=== PATIENT | female | born 1980 | race Caucasian/White ===

== ENCOUNTER → 2016-10-16 | Outpatient (CLI) | payer MEDICAID, OTHER ==
[~2016-10-16] MED LIST: BUTA1CAP PO; EXCETAB2 PO; IOHEXOL 350 MG/ML 10 ML VIAL (for RAD DIAG) IV ONE; OXYC1TAB63 PO; PRED5TAB PO
--- NOTE | 2016-10-16 15:27 | RADRPT ---
EXAM DATE/TIME: 10/16/2016 14:11 [facility] COMPARISON: No previous studies available for comparison. INDICATIONS : New diagnosis of cervical cancer. IV CONTRAST: 85 cc Omnipaque 350 (iohexol) IV ; Cumulative dose for multiple exams. ORAL CONTRAST: Prescribed oral contrast ingested. RADIATION DOSE: 16.63 CTDIvol (mGy) ; Combined studies - Thorax/Abdomen/Pelvis MEDICAL HISTORY : Cervical cancer. SURGICAL HISTORY : Tubal ligation. ENCOUNTER: Initial ACUITY: 1 month PAIN SCALE: 0/10 LOCATION: abdomen TECHNIQUE: Volumetric scanning of the abdomen and pelvis was performed. Using automated exposure control and ad justment of the mA and/or kV according to patient size, radiation dose was kept as low as reasonably achievable to obtain optimal diagnostic quality images. FINDINGS: Lung bases are clear. No focal abnormality in the liver, spleen, adrenals, kidneys or pancreas. Mild fatty liver. No calcified gallstones or biliary ductal dilatation. There is no retroperitoneal adenopathy. Direct examination of the pelvis reveal some soft tissue prom inence in the cervical region. There is reportedly a history of cervical cancer. Borderline-enlarged paracervical lymph nodes are noted. No adnexal mass identified. CONCLUSION: 1. Soft tissue prominence in the cervical region with borderline enlarged paracervical lymph nodes in patient with reported history of cervical cancer. No acute findings within the abdomen. Rudi Clark MD on October 16, 2016 at 15:21 Board Certified Radiologist. This report was verified electronically.
--- NOTE | 2016-10-16 15:31 | RADRPT ---
EXAM DATE/TIME: 10/16/2016 14:11 [facility] COMPARISON: No previous studies available for comparison. INDICATIONS : Cervical cancer. Evaluate for metastatic disease. IV CONTRAST: 85 cc Omnipaque 350 (iohexol) IV ; Cumulative dose for multiple exams. RADIATION DOSE: 16.63 CTDIvol (mGy) ; Combined studies - Thorax/Abdomen/Pelvis MEDICAL HISTORY : Cervical cancer SURGICAL HISTORY : Tubal ligation. ENCOUNTER: Initial ACUITY: 1 month PAIN SCALE: 0/10 LOCATION: chest TECHNIQUE: Volumetric scanning of the chest was performed. Using automated exposure control and adjustment of t he mA and/or kV according to patient size, radiation dose was kept as low as reasonably achievable to obtain optimal diagnostic quality images. FINDINGS: There is an approximately 4 mm nodule right middle lobe. This is likely benign given the fact that no other lung nodules are seen. There is a reported history of cervical cancer. No pleural pericardial effusion. No hilar, mediastinal or axillary adenopathy. No acute bony abnormal ities. CONCLUSION: 1. 4 mm nodule right middle lobe, indeterminate but likely benign. As a conservative measure followup noncontrast chest CT recommended in 6 months. Rudi Clark MD on October 16, 2016 at 15:26 Board Certified Radiologist. This report was verified electronically.
== END ==
LOC: HRAD 12:35
PROVIDERS: ATTEND Obstetrics & Gynecology
DX: C53.9 Malignant neoplasm of cervix uteri, unspecified (principal)
CPT/HCPCS: 71260; 74177; Q9967

== ENCOUNTER → 2016-10-24 | Outpatient (CLI) | payer MEDICAID, OTHER ==
[~2016-10-24] MED LIST changes: -IOHEXOL 350 MG/ML 10 ML VIAL (for RAD DIAG) IV ONE
[2016-10-24 12:13] LABS: AUTOMATED NEUTROPHIL # 4.6 TH/MM3 (1.8-7.7); BASOPHIL % 0.6 % (0.0-2.0); EOSINOPHIL # 0.1 TH/MM3 (0-0.4); EOSINOPHIL % 1.2 % (0.0-4.0); HEMATOCRIT 34.9 % (35.0-46.0); HEMO FLAGS DIFF FINAL; LYMPH % 33.8 % (9.0-44.0); LYMPHOCYTE # 2.7 TH/MM3 (1.0-4.8); MEAN CELL VOLUME 77.8 FL (80.0-100.0); MEAN CORPUSCULAR HEMOGLOBIN 25.3 PG (27.0-34.0); MEAN CORPUSCULAR HGB CONC 32.5 % (32.0-36.0); MONO % 6.9 % (0.0-8.0); NEUT % 57.5 % (16.0-70.0); PLATELET COUNT 271 TH/MM3 (150-450); RED BLOOD COUNT 4.49 MIL/MM3 (4.00-5.30); RED CELL DISTRIBUTION WIDTH 15.9 % (11.6-17.2); WHITE BLOOD COUNT 7.9 TH/MM3 (4.0-11.0)
[2016-10-24 12:27] LABS: APTT (PATIENT) 28.2 SEC (24.3-30.1); PROTHROMBIN TIME - PATIENT 10.7 SEC (9.8-11.6)
[2016-10-24 12:42] LABS: ANION GAP 5 MEQ/L (5-15); AST (GOT) 13 U/L (15-37); BLOOD UREA NITROGEN 9 MG/DL (7-18); CHLORIDE 106 MEQ/L (98-107); SODIUM (NA) 139 MEQ/L (136-145)
[2016-10-24 12:50] LABS: ALKALINE PHOSPHATASE 86 U/L (45-117); ALT (GPT) 34 U/L (10-53); GLOMERULAR FILTRATION RATE 108 ML/MIN (>89); GLUCOSE,FASTING 83 MG/DL (74-99); TOTAL BILIRUBIN ADULT 0.4 MG/DL (0.2-1.0)
[2016-10-24 12:53] LABS: BHCG SCREEN QUALITATIVE LESS THAN 1 MIU/ML (0-5)
== END ==
LOC: CPRE 10:58
PROVIDERS: ATTEND Obstetrics & Gynecology Gynecologic Oncology
DX: Z01.812 Encounter for preprocedural laboratory examination (principal); C53.9 Malignant neoplasm of cervix uteri, unspecified
CPT/HCPCS: 36415; 80053; 84703; 85025; 85610; 85730

== ENCOUNTER → 2016-10-30 | Day surgery (SDC) | payer MEDICAID, OTHER ==
[~2016-10-30] VITALS: Ht 157.5 cm; Wt 81.4 kg
[~2016-10-30] MED LIST changes: +DEXAMETHASONE SOD PHOS 4 MG/ML VIAL ONE; +DO NOT ADM ANY ANTICOAGULANT DRUGS XX PRN; +FERRIC SUBSULFATE 8 ML TOP SOLN TOPICAL ONE; +INSULIN HUMAN REGULAR 1,000 UNITS/10 ML VIAL SQ PRN; +KETOROLAC TROMETHAMINE 60 MG/2 ML (IM) VIAL IM ONE; +LACTATED RINGER'S 1000 ML IV SCH; +LIDOCAINE 1%/EPINEPHrine 1:100,000 SOLN 30 ML VIAL ONE; +METOPROLOL TARTRATE 25 MG TAB PO PRN; +MIDAZOLAM HCL 2 MG/2 ML VIAL ONE; +ONDANSETRON HCL 4 MG/2 ML VIAL IV PUSH ONE; +PROPOFOL 200 MG/20 ML AMP IV ONE; +SODIUM CHLORID 0.9% 500 ML IV SCH; +VASOPRESSIN INJ 20 UNITS/ML VIAL ONE
[2016-10-30 16:50] VITALS: BP 100/54; PULSE 66; RESP 18; TEMP 97.4; O2SAT 97
--- NOTE | 2016-11-01 07:20 | MP ---
cc: NORBERT HOUSTON MD, KELLY L. MD DATE OF SURGERY 10/30/2016 PREOPERATIVE DIAGNOSIS Squamous cell carcinoma of the cervix. POSTOPERATIVE DIAGNOSIS 1. Squamous cell carcinoma of cervix. 2. Clinical stage IIB PROCEDURE PERFORMED Examination under anesthesia, cervix biopsies, cystoscopy, proctoscopy. HISTORY This is a 36-year-old female with irregular bleeding. Pap smear abnormal-appearing cervix on exam. Biopsy showed invasive squamous cell carcinoma. Imaging showed some borderline prominent lymph nodes adjacent to the cervix without any overt retroperitoneal adenopathy. She was seen and counseled regarding the need for further evaluation and presents now for that endeavor. SURGEON Aminah Silva MD INTRAOPERATIVE CONSULT Dr. Mcintyre of radiation oncology FINDINGS On exam under anesthesia, there are no appreciably enlarged inguinal lymph nodes. External genitalia without mass or lesion. The cervix is quite prominent. There is abnormal-appearing tissue that seems consistent with tumor that occupies approximately 3 cm surface area and the cervix itself is prominent to approximately between 5 and 6 cm. The circumferential perimeter of the cervix appears and is palpably normal such that there may be a burden of tumor within the endocervical component of the cervix. On bimanual and rectovaginal exam, there is some mild thickening to the right parametria, but the cervix and uterus are mobile on the right side. However, on the left side, there is retraction of the cervix up toward the upper left vagina. There is decreased mobility and there is thickening to the left parametria all suspicious for tumor invasion. There is tumor free space between the parametria and the sidewalls of the pelvis bilaterally. On cystoscopy, the bladder mucosa appears normal circumferentially. There is good reflux of urine bilaterally from the normal-appearing ureteral ostia. On rigid sigmoidoscopy to 16 cm, there is normal mucosa without obvious mass, polyps, growths or infiltration. She is not prepped and visibility above 16 cm is not possible. There is no overt extrinsic deviation to the normal anatomy of the rectosigmoid. Frozen section, the preliminary biopsy showed at least carcinoma in situ. The specimen sent could not reconfirm invasive cancer, but multiple additional biopsies were also collected and sent for permanent histopathologic analysis. Outside biopsy has shown invasive cancer. Overall, these findings are consistent with a clinical stage IIB squamous cell carcinoma of the cervix. PROCEDURE The patient taken operating room, placed in the dorsal lithotomy position after laryngeal mask anesthesia was administered. A time-out was undertaken. The patient was identified by sight recognition and hospital ID bracelet and the proposed procedure was reviewed and confirmed. She was carefully positioned in stirrups. Exam under anesthesia was performed after a laryngeal mask after laryngeal mask anesthesia was administered and findings are as described above. She was prepped and draped in a sterile fashion. Cervix biopsies were obtained. Some of the tissue sent for frozen section. Additional biopsies obtained and sent for permanent histopathologic analysis and the sites were rendered hemostatic with Monsel's solution. Cystoscopy was performed using a 70 degrees scope with findings as described above. Rigid proctosigmoidoscopy was performed with findings as described above. A change of sterile gloves was undertaken. The pelvis was inspected and cervix was hemostatic. There were no remaining foreign objects in the vagina. Preliminary final counts were correct. She was returned to dorsal supine position and was pending reversal of anesthesia when I left the operating room to precede her to the Post Anesthesia Care Unit. MD RICKY Page/MARIA A /7:41 AM /7:12 AM
== END | disposition home or self-care (01) ==
LOC: HSDC 10:59
PROVIDERS: ATTEND Obstetrics & Gynecology Gynecologic Oncology
DX: C53.9 Malignant neoplasm of cervix uteri, unspecified (principal)
CPT/HCPCS: 00940; 45300; 52000; 57520; 86850; 86900; 86901; 88305; 88331; J1100; J1885; J2250; J2405; J3010

== ENCOUNTER 2016-11-06 12:52 | Inpatient (IN) | payer MEDICAID, OTHER ==
[~2016-11-06] VITALS: Ht 157.5 cm; Wt 88.1 kg
[~2016-11-06 12:52] MED LIST changes: -DEXAMETHASONE SOD PHOS 4 MG/ML VIAL ONE; -DO NOT ADM ANY ANTICOAGULANT DRUGS XX PRN; -EXCETAB2 PO; -FERRIC SUBSULFATE 8 ML TOP SOLN TOPICAL ONE; -INSULIN HUMAN REGULAR 1,000 UNITS/10 ML VIAL SQ PRN; -KETOROLAC TROMETHAMINE 60 MG/2 ML (IM) VIAL IM ONE; -LACTATED RINGER'S 1000 ML IV SCH; -LIDOCAINE 1%/EPINEPHrine 1:100,000 SOLN 30 ML VIAL ONE; -METOPROLOL TARTRATE 25 MG TAB PO PRN; -MIDAZOLAM HCL 2 MG/2 ML VIAL ONE; -ONDANSETRON HCL 4 MG/2 ML VIAL IV PUSH ONE; -OXYC1TAB63 PO; -PRED5TAB PO; -PROPOFOL 200 MG/20 ML AMP IV ONE; -SODIUM CHLORID 0.9% 500 ML IV SCH; -VASOPRESSIN INJ 20 UNITS/ML VIAL ONE
[2016-11-11] MEDS ORDERED: LIDOCAINE 1%/EPINEPHrine 1:100,000 SOLN 30 ML VIAL ONE (06:50)
[2016-11-11 09:35] VITALS: BP 118/66; PULSE 88; RESP 16; TEMP 98.8; O2SAT 99
[2016-11-11] MEDS ORDERED: EXCETAB2 PO (10:19)
[2016-11-11] MEDS ORDERED: LACTATED RINGER'S 1000 ML IV SCH (10:30)
[2016-11-11] MEDS ORDERED: SODIUM CHLORID 0.9% 500 ML IV SCH (10:30)
[2016-11-11] MEDS ORDERED: METOPROLOL TARTRATE 25 MG TAB PO PRN (10:30)
[2016-11-11] MEDS ORDERED: INSULIN HUMAN REGULAR 1,000 UNITS/10 ML VIAL SQ PRN (10:30)
[2016-11-11] MEDS ORDERED: ceFAZolin 2 GM PREMIX 50 ML ONE (10:32)
[2016-11-11] MEDS ORDERED: HEPARIN SODIUM - SQ 10,000 UNITS/ML VIAL ONE (10:35)
[2016-11-11] MEDS ORDERED: PHENYLEPH/NS 1000 MCG/10 ML SYR IV ONE (10:52)
[2016-11-11] MEDS ORDERED: ONDANSETRON HCL 4 MG/2 ML VIAL IV PUSH ONE (10:52)
[2016-11-11] MEDS ORDERED: LACTATED RINGER'S 1000 ML INJ 2,000 ML IV ONE (10:52)
[2016-11-11] MEDS ORDERED: NEOSTIGMINE 3 MG/3 ML SYR IV ONE (10:52)
[2016-11-11] MEDS ORDERED: PROPOFOL 200 MG/20 ML AMP IV ONE (10:52)
[2016-11-11] MEDS ORDERED: ACETAMINOPHEN 1000 MG/100 ML VIAL IV ONE (11:07)
[2016-11-11] MEDS ORDERED: MIDAZOLAM HCL 2 MG/2 ML VIAL ONE (11:28)
[2016-11-11] MEDS ORDERED: FAMOTIDINE 20 MG/2 ML VIAL ONE (11:28)
[2016-11-11] MEDS ORDERED: HYDROmorphone HCL PF 1 MG/ML VIAL IVP PRN (14:30)
[2016-11-11] MEDS ORDERED: SODIUM CHLORIDE 0.9% FLUSH 5 ML FLUSH FLUSH PRN (14:30)
[2016-11-11] MEDS ORDERED: oxyCODONE/ACETAMINOPHEN 5 MG/325 MG TAB PO PRN ×2 (14:30)
[2016-11-11] MEDS ORDERED: diphenhydrAMINE HCL 25 MG CAP PO PRN (14:30)
[2016-11-11] MEDS ORDERED: ONDANSETRON HCL 4 MG/2 ML VIAL IVP PRN (14:30)
[2016-11-11] MEDS ORDERED: LORazepam 0.5 MG TAB PO PRN (14:30)
[2016-11-11] MEDS ORDERED: fentaNYL CITRATE 250 MCG/5 ML AMP ONE (14:51)
[2016-11-11] MEDS ORDERED: MORPHINE SULFATE 4 MG/ML INJ ONE (14:51)
[2016-11-11] MEDS: D5-1/2 NS + KCL 20 MEQ INJ 1,000 ML IV SCH ×2 (14:59→21:07)
[2016-11-11] MEDS ORDERED: ONDANSETRON INJ 8 MG in DEXTROSE 5% IN WATER INJ 50 ML IV PUSH PRN ×2 (15:00)
[2016-11-11] MEDS: KETOROLAC TROMETHAMINE 30 MG/ML (IVP) VIAL IVP SCH ×2 (15:00→21:06)
[2016-11-11] MEDS ORDERED: DO NOT ADM ANY ANTICOAGULANT DRUGS XX PRN (15:15)
[2016-11-11] MEDS: ACETAMIN 325 MG/BUTALBITAL 50 MG/CAFFEINE 40 MG TAB PO PRN (18:06)
[2016-11-11 20:00] VITALS: BP 114/67; PULSE 76; RESP 17; TEMP 97.2; O2SAT 95
[2016-11-11] MEDS: SODIUM CHLORIDE 0.9% FLUSH 5 ML FLUSH FLUSH SCH (21:12)
[2016-11-12] VITALS: BP 113/65; PULSE 78; RESP 17; TEMP 98.6; O2SAT 96
[2016-11-12] MEDS: ACETAMIN 325 MG/BUTALBITAL 50 MG/CAFFEINE 40 MG TAB PO PRN (00:04)
[2016-11-12] MEDS: KETOROLAC TROMETHAMINE 30 MG/ML (IVP) VIAL IVP SCH ×2 (03:10→08:10)
[2016-11-12 04:00] VITALS: BP 109/67; PULSE 65; RESP 16; TEMP 98.6; O2SAT 97
[2016-11-12] MEDS: D5-1/2 NS + KCL 20 MEQ INJ 1,000 ML IV SCH (06:26)
[2016-11-12 06:33] LABS: AUTOMATED NEUTROPHIL # 7.6 TH/MM3 (1.8-7.7); BASOPHIL % 0.2 % (0.0-2.0); HEMATOCRIT 32.3 % (35.0-46.0); HEMO FLAGS DIFF FINAL; LYMPH % 15.8 % (9.0-44.0); LYMPHOCYTE # 1.6 TH/MM3 (1.0-4.8); MEAN CELL VOLUME 76.4 FL (80.0-100.0); MEAN CORPUSCULAR HEMOGLOBIN 25.3 PG (27.0-34.0); MEAN CORPUSCULAR HGB CONC 33.1 % (32.0-36.0); MONO % 8.6 % (0.0-8.0); NEUT % 75.4 % (16.0-70.0); PLATELET COUNT 266 TH/MM3 (150-450); RED BLOOD COUNT 4.22 MIL/MM3 (4.00-5.30); WHITE BLOOD COUNT 10.1 TH/MM3 (4.0-11.0)
[2016-11-12 06:57] LABS: BICARBONATE 24.5 MEQ/L (21.0-32.0); POTASSIUM 3.9 MEQ/L (3.5-5.1)
[2016-11-12 08:00] VITALS: BP 111/66; PULSE 66; RESP 18; TEMP 98.1; O2SAT 98
[2016-11-12] MEDS ORDERED: OXYC1TAB63 PO (08:03)
[2016-11-12] MEDS: SODIUM CHLORIDE 0.9% FLUSH 5 ML FLUSH FLUSH SCH (08:10)
[2016-11-12 12:00] VITALS: BP 114/60; PULSE 88; RESP 18; TEMP 97.5; O2SAT 97
--- NOTE | 2016-11-12 12:39 | MP ---
cc: NORBERT HOUSTON MD, KELLY L. MD DATE OF SURGERY 11/11/2016 PREOPERATIVE DIAGNOSES 1. Stage II-B squamous cell carcinoma of the cervix. 2. Desires preservation of ovarian function. POSTOPERATIVE DIAGNOSES 1. Stage II-B squamous cell carcinoma of the cervix. 2. Desires preservation of ovarian function. PROCEDURE Robotic-assisted laparoscopic bilateral ovarian transposition, bilateral salpingectomy. SURGEON Aminah Silva MD VICE PRESIDENT [employer] [place] laboratory chemical assistant. ANESTHESIA General endotracheal anesthesia. ESTIMATED BLOOD LOSS 50 cc. IV FLUIDS 2000 cc. URINE OUTPUT 600 cc. HISTORY This is a 36-year-old female recently diagnosed with Stage II-B squamous cell carcinoma of the cervix. Their plan is to move forward with treating this with pelvic radiation and cisplatin chemotherapy. In an effort to avoid premature ovarian failure due to radiation of the ovaries, she has been counseled about the potential benefit of ovarian transposition. She is in favor of that surgical procedure. She also has been counseled regarding the potential cancer risk reduction of salpingectomy. She has already had tubal ligation. She understands the reproductive ramifications of this procedure and the forthcoming radiation therapy. She is seen again in the preop holding area. These findings and considerations are again discussed. Her questions were answered. She expressed good understanding and agreed to move forward with surgery. FINDINGS There was no overtly enlarged pelvic or paraaortic lymph nodes. There were no peritoneal implants. The tubes and ovaries grossly appeared normal bilaterally except for some small simple-appearing paratubal cysts. PROCEDURE The patient was taken to the operating room, placed in dorsal lithotomy position after general endotracheal anesthesia was administered. Time-out was undertaken. The patient was identified by sight recognition and hospital ID bracelet and the proposed procedure was reviewed and confirmed. She was carefully positioned in padded Pramod stirrups. Her arms were padded and secured to the sides. She was further secured to the operating table with eggcrate padding and tape in across chest over the shoulder fashion. All sites were noted be properly aligned with no malalignments or pressure points. She was prepped in sterile fashion, draped. A De La Fuente catheter had been placed in the bladder and confirmed that an orogastric airway had been placed in the stomach on suction. With manual elevation of the abdominal wall and direct laparoscopic visualization, a 5-mm cannula was placed in the left upper quadrant. An atraumatic entry was confirmed. Carbon dioxide gas was insufflated into the peritoneum. An 8-mm cannula was placed in the right upper abdomen, left lateral abdomen and a 12-mm cannula placed in midline above the umbilicus. The original 5 was exchanged for a 8-mm cannula. She is placed in steep Trendelenburg position. The small bowel folded back on its mesenteric root. Three Ray-Denzel sponges were placed around the root of the small bowel mesentery. The anatomy was surveyed with findings as described above. The robotic system was brought onto the operative field, attached in the usual fashion. Monopolar scissors, fenestrated bipolar forceps and ProGrasp manipulators were placed in arms #1, 2 and 3 respectively and I took my place at the surgeon's console. Retroperitoneal dissection was carried out lateral to the gonadal vessels, dissection taken above the level of the pelvic brim and down to the round ligament. The right ureter was identified. The intervening peritoneum was opened. The infundibulopelvic ligament was isolated and the right uteroovarian ligaments were isolated. The uteroovarian ligaments were cauterized and two surgical clips were placed on the uteroovarian ligament for radiographic Identification once the ovary was transposed and cautery and sharp dissection was used to remove the right fallopian tube. She is status post tubal ligation and a fallopian tube ring was noted in the proximal fallopian tube. The tube was placed in the cul-de-sac for later retrieval. Attention was directed toward the left side where the left retroperitoneal dissection was carried out. The left ureter was identified, left infundibulopelvic ligament was isolated. The intervening peritoneum was opened and the infundibulopelvic ligament was isolated well above the level of the pelvic brim and dissection was carried distally to isolate the left uteroovarian ligament. The uteroovarian ligament was cauterized, surgical clips were placed on the uteroovarian ligament help with radiographic location after repositioning Sharp dissection was used now to transect the uteroovarian ligaments bilaterally after the left fallopian tube was similarly removed and placed in the cul-de-sac for later retrieval. The ovaries were rotated above the pelvic brim in their ipsilateral paracolic gutters. The blood supply was arranged in an anatomical alignment in that there were no torsions or twists and the placement of the ovaries was such that there was no compromise to the blood supply. Instruments #1 and 3 were exchanged for needle drivers as 2-0 Vicryl suture was introduced. The sutures started on the left with interrupted [id number] sutures securing the ovary in place between the peritoneum and subperitoneal tissue, sutured to the residual uteroovarian ligament in interrupted fashion, tied via instrument tie. The needle was cut and removed. A new 2-0 Vicryl suture was introduced. Similarly the right ovary was secured in place, interrupted 2-0 Vicryl sutures securing the residual uteroovarian ligament to the peritoneum and subperitoneal tissue, interrupted sutures tied via instrument tie. The needle was cut and removed. The pelvis and paracolic gutters were irrigated. All sites were hemostatic. There was good viability of the ovaries, good gradual curve of the gonadal vessels with no kinking or twisting and securing of the ovaries to prevent torsion. The uterus was hemostatic. The pelvis was again thoroughly irrigated. The fallopian tubes were placed now in the right paracolic gutter for ease of retrieval laparoscopically. It was felt that all reasonable surgical objectives had been completed after the anatomy was surveyed and no intraperitoneal or retroperitoneal abnormality of significance detected. The robotic instruments were removed. The robotic system was disengaged from the operative field. I reentered bedside under sterile condition. Each of the three Ray-Denzel sponges were removed through the 12-mm cannula. They were removed individually and inspected and noted to be removed in their entirety. An EndoCatch bag was then introduced to capture the bilateral fallopian tubes which were brought out through the 12-mm cannula and sent for permanent histopathologic analysis. The 12-mm fascial defect was closed with interrupted 0 Vicryl sutures using a needle pass fascia closure apparatus. The sutures were tied securely which rendered the fascia completely airtight and hemostatic. The remaining cannulas were withdrawn. Carbon dioxide gas was removed from the peritoneal cavity. 3-0 Vicryl subcutaneous, 3-0 Vicryl subcuticular and Steri-Strips used to close these incisions. Preliminary and final counts were correct. There were no remaining foreign objects in the vagina. She was returned to dorsal supine position and was pending reversal of anesthesia when I left the operating room to precede her to the Post-Anesthesia Care Unit and speak with family members who were in the surgical waiting area. MD RICKY Page/JUNIOR /6:04 PM /12:22 PM
--- NOTE | 2016-11-17 17:15 | MD ---
cc: DAYANA LLANES MD,JOHANA HOUSTON,NORBERT Caro MD ADMISSION DATE: 11/11/2016 DISCHARGE DATE: 11/12/2016 PROCEDURE PERFORMED: 11/11/2016: robotic-assisted laparoscopic bilateral ovarian transposition and bilateral salpingectomy. DIAGNOSIS: Clinical stage IIB squamous cell carcinoma of the cervix and desire to preserve ovarian function with forthcoming chemoradiation. HOSPITAL COURSE: She did well during the early postoperative period. OBJECTIVE: Ins and outs were 5390 / 5050. LABS: Hemoglobin and hematocrit were 10.7 / 32.3. Potassium 3.9, BUN 4 and creatinine 0.65. PHYSICAL EXAMINATION: VITAL SIGNS: Afebrile, pulse 65-89, respirations 16-17, blood pressure 103-114/58-72, O2 saturations greater than or equal to 96% while awake. GENERAL: Alert and oriented x3 in no acute distress. LUNGS: Clear. CARDIOVASCULAR: Regular rate rhythm. ABDOMEN: Soft. Incisions clean and dry. EXTREMITIES: Nontender. ASSESSMENT: Postop day #1 findings reviewed activity restrictions discussed. Questions were answered. Overall she is doing well, tolerating oral intake. Her biggest complaint is that of a migraine headache which she gets for which she takes Fioricet given last night which alleviated her symptoms to some extent. She has no new complaints and is tolerating oral intake. De La Fuente catheter is removed pending voiding. PLAN: 1. Anticipate she will meet criteria for discharge to home her office number is again made available. 2. She is to call our office to set up follow up within one to two weeks. 3. Prescription is provided for Percocet to use as needed for pain as she typically only takes Fioricet once daily as needed. 4. She is instructed on [id number] nonsteroidals that can also be used. 5. Her questions were answered. She expressed good understanding. MD RICKY Page/ETIENNE /8:07 AM /5:10 PM
[2017-02-27] MEDS ORDERED: PRED5TAB PO (05:53)
== END 2016-11-12 13:35 | disposition home or self-care (01) | DRG 741 ==
LOC: HSDI 11-11 09:27 → EDSTATUS 11-11 12:00 → HOCB 11-11 18:11
PROVIDERS: ADMIT Obstetrics & Gynecology Gynecologic Oncology; ATTEND Obstetrics & Gynecology Gynecologic Oncology
PROC: 0UT74ZZ Resection of Bilateral Fallopian Tubes, Percutaneous Endoscopic Approach (ICD-10-PCS; 2016-11-11)
PROC: 8E0W4CZ Robotic Assisted Procedure of Trunk Region, Percutaneous Endoscopic Approach (ICD-10-PCS; 2016-11-11)
PROC: 0US24ZZ Reposition Bilateral Ovaries, Percutaneous Endoscopic Approach (ICD-10-PCS; principal; 2016-11-11 11:35)
DX: C53.9 Malignant neoplasm of cervix uteri, unspecified (principal); N83.8 Other noninflammatory disorders of ovary, fallopian tube and broad ligament; Z98.51 Tubal ligation status
CPT/HCPCS: 77263; 77334; 80048; 85025; 86850; 86900; 86901; 88305; 94150; J0131; J0690; J1644; J1885; J2250; J2270; J2370; J2405; J2710; J3010; J3480; J7120

== ENCOUNTER 2016-11-19 07:33 | Day surgery (SDC) | payer MEDICAID, OTHER ==
[2016-11-19] VITALS (8 sets, daily range): BP systolic 99–147; BP diastolic 56–70; PULSE 75–96; RESP 16–20; TEMP 97.5–98.5; O2SAT 93–100
[~2016-11-19] VITALS: Ht 157.5 cm; Wt 82.7 kg
[~2016-11-19 07:33] MED LIST changes: +EXCETAB2 PO; +OXYC1TAB63 PO
[2016-11-19] MEDS ORDERED: POVIDONE IODINE 5% (ANTISEPSIS KIT) 4 APPLICATIONS EACH NARE SCH (08:00)
[2016-11-19] MEDS ORDERED: CHLORHEXIDINE GLUCONATE 2 % 1 PACK (2 CLOTHS) TOPICAL SCH (08:00)
[2016-11-19] MEDS ORDERED: ceFAZolin 2 GM PREMIX 50 ML - implanted port/tunneled catheter insertion IV SCH (08:00)
[2016-11-19] MEDS ORDERED: VANCOMYCIN 1000 MG/NS 250 ML - implanted port/tunneled catheter IV SCH ×2 (08:00)
[2016-11-19] MEDS ORDERED: MIDAZOLAM HCL 5 MG/5 ML VIAL ONE (09:06)
[2016-11-19] MEDS ORDERED: fentaNYL CITRATE 250 MCG/5 ML AMP ONE (09:06)
[2016-11-19] MEDS ORDERED: diphenhydrAMINE HCL 50 MG/ML VIAL ONE (09:11)
[2016-11-19] MEDS ORDERED: LIDOCAINE 1%/EPINEPHrine 1:100,000 SOLN 20 ML VIAL ONE (09:35)
--- NOTE | 2016-11-20 14:09 | RADRPT ---
EXAM DATE/TIME: 11/19/2016 09:35 [facility] COMPARISON: No previous studies available for comparison. INDICATIONS : Patient is in need of placement of a port for chemotherapy treatment for squamous cell cervical cance r. MEDICAL HISTORY : History of migraines, thyroid disease. SURGICAL HISTORY : History of tubal ligation, LEEP procedure, colposcopy with biopsy. ENCOUNTER: Initial ACUITY: 1 month PAIN SCORE: 0/10 FLUORO TIME: 0.4 minutes IMAGE SERIES: 0 SEDATION TIME: 30 minutes ACCESS: Right internal jugular vein SEDATION: 1.) 2.5 mg midazolam (Versed) IV 2.) 125 mcg fentanyl (Sublimaze) IV Prophylactic antibiotics were administered with appropriate pre-procedure timing. Vancomycin within 2 hours of procedure, Ancef (or alternative) within 1 hour of procedure. DEVICE: 1. 8 [employer] Power Port PROCEDURE : 1. Continuous pulse oximetry and EKG monitoring. 2. Intravenous conscious sedation. 3. Ultrasound guidance for venous access. 4. Fluoroscopic guided implantable central venous port placement. The patient was placed supine. The neck was prepped in sterile fashion. Full sterile technique was u sed, including cap, mask, sterile gloves and gown, and a large sterile sheet. Hand hygiene and 2% ch lorhexidine Betadine was utilized per protocol for cutaneous antisepsis with appropriate dry time for site. The skin and subcutaneous tissues were infiltrated with local anesthetic solution. Under direct ultrasound guidance, central venous access was accomplished in the targeted vessel. The ultrasound images depicting access guidance were stored and saved to PACS for permanent record. A s ubcutaneous pocket was created using blunt dissection. The port was introduced to the pocket. The c atheter tubing was fed through a subcutaneous tunnel to the venotomy site. The catheter tubing was c ut to a suitable length and then was introduced through a valved Peel-Away sheath and positioned with catheter tubing tip at the cavo-atrial junction level. The pocket incision was closed with subcutic ular Vicryl suture. Steri-Strips were applied. The port was flushed and locked with heparin solutio n per protocol. Sterile dressing was applied to the site. The patient tolerated the procedure well. Conscious sedation was performed with the prescribed dosages and duration as above in the presence of an independent trained radiology nurse to assist in the monitoring of the patient. EKG and oximetry remained stable throughout the procedure. The patient tolerated the procedure well and there were no complications. The patient was sent to post anesthesia recovery in stable condition. CONCLUSION: Uncomplicated ultrasound and fluoroscopic guided implanted central venous port catheter placement as described in detail above. An 8 [employer] Power port was placed. Chaz Escobar MD on November 20, 2016 at 14:07 Board Certified Radiologist. This report was verified electronically.
[2017-02-27] MEDS ORDERED: PRED5TAB PO (05:53)
== END 2016-11-19 12:30 | disposition home or self-care (01) ==
LOC: HROP 07:33 → HRIP 07:34 → HROP 12:30
PROVIDERS: ATTEND Obstetrics & Gynecology Gynecologic Oncology
DX: Z45.2 Encounter for adjustment and management of vascular access device (principal); C53.9 Malignant neoplasm of cervix uteri, unspecified
CPT/HCPCS: 36561; 76937; 77001; 99152; 99153; C1788; J0690; J1200; J1642; J2250; J3010; J3370; J7050; 77003

== ENCOUNTER → 2017-09-25 | Outpatient (CLI) | payer OTHER, MEDICAID ==
[2017-09-25 10:39] LABS: AUTOMATED NEUTROPHIL # 4.7 TH/MM3 (1.8-7.7); BASOPHIL % 0.4 % (0.0-2.0); EOSINOPHIL # 0.1 TH/MM3 (0-0.4); EOSINOPHIL % 1.5 % (0.0-4.0); HEMATOCRIT 36.1 % (35.0-46.0); LYMPH % 19.4 % (9.0-44.0); LYMPHOCYTE # 1.3 TH/MM3 (1.0-4.8); MEAN CELL VOLUME 84.8 FL (80.0-100.0); MEAN CORPUSCULAR HEMOGLOBIN 28.1 PG (27.0-34.0); MEAN CORPUSCULAR HGB CONC 33.2 % (32.0-36.0); MEAN PLATELET VOLUME 8.7 FL (7.0-11.0); MONO % 6.8 % (0.0-8.0); MONOCYTE # 0.4 TH/MM3 (0-0.9); NEUT % 71.9 % (16.0-70.0); PLATELET COUNT 235 TH/MM3 (150-450); RED BLOOD COUNT 4.25 MIL/MM3 (4.00-5.30); RED CELL DISTRIBUTION WIDTH 13.8 % (11.6-17.2); WHITE BLOOD COUNT 6.6 TH/MM3 (4.0-11.0)
[2017-09-25 10:42] LABS: BILIRUBIN, URINE NEG (NEG); BLOOD, URINE NEG (NEG); GLUCOSE,URINE NEG (NEG); KETONE, URINE NEG (NEG); MUCUS URINE FEW /lpf (OCC); NITRITE,URINE NEG (NEG); PH, URINE 5.5 (5.0-8.5); SQUAMOUS EPITHELIAL CELL URINE 2 /hpf (0-5); URINE COLOR LIGHT-YELLOW (YELLW/STRAW); URINE LEUKOCYTE ESTERASE NEG (NEG)
[2017-09-25 11:02] LABS: ALBUMIN 3.7 GM/DL (3.4-5.0); ALT (GPT) 29 U/L (10-53); AST (GOT) 15 U/L (15-37); BICARBONATE 26.9 MEQ/L (21.0-32.0); BLOOD UREA NITROGEN 9 MG/DL (7-18); CALCIUM 8.7 MG/DL (8.5-10.1); CHLORIDE 107 MEQ/L (98-107); CREATININE 0.59 MG/DL (0.50-1.00); GLOMERULAR FILTRATION RATE 116 ML/MIN (>89); GLUCOSE,FASTING 95 MG/DL (74-99); SODIUM (NA) 141 MEQ/L (136-145)
[2017-09-25 11:06] LABS: ALKALINE PHOSPHATASE 117 U/L (45-117); TOTAL BILIRUBIN ADULT 0.3 MG/DL (0.2-1.0); TOTAL PROTEIN 8.1 GM/DL (6.4-8.2)
== END ==
LOC: CPRE 09:37
PROVIDERS: ATTEND Obstetrics & Gynecology Gynecology
DX: Z01.812 Encounter for preprocedural laboratory examination (principal); N82.0 Vesicovaginal fistula
CPT/HCPCS: 36415; 80053; 81001; 84703; 85025